=== PATIENT | female | born 1965 | race Caucasian/White ===

== ENCOUNTER → 2020-08-13 16:53 | Outpatient (CLI) | payer OTHER, SELFPAY ==
--- NOTE | 2020-08-13 | DI.MG.S_ITS ---
BILATERAL DIGITAL SCREENING MAMMOGRAM 3D/2D WITH CAD: 08/13/2020 CLINICAL: Routine screening. Baseline exam. Family history of breast cancer. Comparison is made to exams dated: 03/12/2016 mammogram, 07/17/2013 mammogram, and 04/11/2012 mammogram - outside location. There are scattered fibroglandular elements in both breasts. Current study was also evaluated with a Computer Aided Detection (CAD) system. No significant masses, calcifications, or other findings are seen in either breast. There has been no significant interval change. IMPRESSION: NEGATIVE There is no mammographic evidence of malignancy. A 1 year screening mammogram is recommended. This exam was interpreted at Station ID: [id number]. NOTE: For mammograms, a report in lay terms will be sent to the patient. Approximately 15% of breast malignancies will not be visualized mammographically. In the management of a palpable breast mass, a negative mammogram must not discourage biopsy of a clinically suspicious lesion. Electronically Signed By: David bishop/rosas:08/21/2020 09:56:16 letter sent: Normal Exam ACR BI-RADS Category 1: Negative [id number]
== END ==
DX: Z12.31 Encounter for screening mammogram for malignant neoplasm of breast (principal); Z80.3 Family history of malignant neoplasm of breast
CPT/HCPCS: 77063; 77067